=== PATIENT | female | born 1940 | race Caucasian/White ===

== ENCOUNTER → 2017-05-25 | Outpatient (CLI) | payer MEDICARE, OTHER ==
[~2017-05-25] MED LIST: ACCUPRIL PO; AUGMENTIN PO; CLARITIN10 MG PO; CRESTOR PO; GLUCOTROL PO; HCTZ PO; LOSARTAN POTASS50 MG PO; MOBIC PO; MUCINEX DM1 TAB.SR . PO; NORCO 7.5-3251 EACH PO; PAROXETINE HCL20 M1 PO; PAXIL PO; ULTRAM PO; VIT E PO; [UNRECOGNIZED DRUG - OTHER] PO
--- NOTE | ~2017-05-25 | MR18 ---
[facility] A Service of [facility] RADIOLOGY TEXT RESULTS PATIENT: GUSTAVO VELAZQUEZ LOCATION: [facility] : 42 UNIT #: [id number] AGE: [address]: Juliet Fine MD SEX: F ORDER DR: [id number] [facility] [address] [place], [place] [address] [id number] O MR#: [id number] Acc #: [id number] NAME: GUSTAVO VELAZQUEZ : 1940 SEX: F STUDY DATE/TIME: 05/25/2017 13:58 UNIT: [facility] ROOM: STUDY DESCRIPTION: MR Brain Wo Contrast Attending Physician: Juliet Fine M.D. Referring Physician: Juliet Fine M.D. Ordering Physician: Juliet Fine M.D. Primary Care Physician: Juliet Fine M.D. MRI CENTER REPORT This report is preliminary unless electronic signature is present. EXAM MRI brain without contrast INDICATION Intermittent left frontal headaches for the past year. Syncopal episode 1 month ago. PROCEDURE Multiplanar, multisequence MR imaging of the brain. COMPARISON 04/30/2011 FINDINGS Brain volume within normal limits for the patient's age. There is no acute hemorrhage, restricted diffusion, abnormal mass effect, extraaxial collection or hydrocephalus. Flow voids in the major intracranial vessels are intact. There is mild mucosal thickening in the sphenoid sinuses. There is patchy fluid in both ethmoid air cells. IMPRESSION Mucosal thickening in the sphenoid sinuses and patchy fluid in both mastoid air cells. Otherwise negative MRI of the brain. Dictated by... Ricki Sun M.D. THIS IS AN ELECTRONICALLY VERIFIED REPORT Ricki Sun M.D. at 05/30/2017 11:07 AM Shruthi TD: 05/26/2017 12:26 JOB #: [id number] [facility] A Service of [facility] RADIOLOGY TEXT RESULTS PATIENT: GUSTAVO VELAZQUEZ LOCATION: [facility] #: [id number] : 42 UNIT #: [id number] AGE: [address]: Juliet Fine MD SEX: F ORDER DR: MRI CENTER REPORT Page 1 of 1 COPY
[2017-05-25 13:56] LABS: POC - CREATININE 1.6 mg/dL (0.44-1.03)
== END | disposition home or self-care (01) ==
LOC: CMRI 12:55
PROVIDERS: Family Medicine
DX: R55 Syncope and collapse (principal); J34.89 Other specified disorders of nose and nasal sinuses
CPT/HCPCS: 70551; 82565